=== PATIENT | female | born 1990 | race Two or more races ===

== ENCOUNTER 2016-06-19 04:10 | Emergency (ER) | payer OTHER, MEDICAID ==
[2016-06-19] MEDS ORDERED: LIDOCAINE-MPF 1% 5 ML VIAL ONE (05:25)
== END 2016-06-19 06:24 | disposition home or self-care (01) ==
DX: S61.211A Laceration without foreign body of left index finger without damage to nail, initial encounter (principal); W26.0XXA Contact with knife, initial encounter; Y92.89 Other specified places as the place of occurrence of the external cause; Y99.0 Civilian activity done for income or pay; F17.200 Nicotine dependence, unspecified, uncomplicated

== ENCOUNTER 2016-10-31 13:38 | Emergency (ER) | payer MEDICAID ==
--- NOTE | 2016-10-31 14:27 | ED Physician Documentation ---
PD HPI ABD PAIN - Stated complaint Stated Complaint: RT SIDE PX - Chief complaint Chief Complaint: Abd Pain - History obtained from History obtained from: Patient PD PAST MEDICAL HISTORY - Past Medical History Past Medical History: No Cardiovascular: Other Respiratory: None - Past Surgical History Past Surgical History: No - Present Medications Home Medications: Ambulatory Orders Medication Instructions Recorded Confirmed No Known Home Medications [No 06/19/16 06/19/16 Known Home Medications] - Allergies Allergies/Adverse Reactions: Allergies Allergy/AdvReac Type Severity Reaction Status Date / Time No Known Drug Allergies Allergy Verified 06/19/16 04:19 - Social History Does the pt smoke?: Yes Smoking Status: Current every day smoker Does the pt drink ETOH?: Yes Does the pt have substance abuse?: No - Immunizations Immunizations are current?: Yes - POLST Patient has POLST: No Results - Vitals Vitals: Vital Signs - 24 hr 10/31/16 13:51 Temperature 36.8 C Heart Rate 86 Respiratory 18 Rate Blood Pressure 132/96 H O2 Saturation 100 Oxygen O2 Source Room air
[2016-10-31] MEDS ORDERED: ACETAMINOPHEN 1,000 MG/100 ML 100 ML IV STA (14:32)
[2016-10-31] MEDS ORDERED: SODIUM CHLORIDE 0.9% 1,000 ML IV ONE ×2 (14:32→14:44)
[2016-10-31] MEDS ORDERED: ONDANSETRON 4 MG/2 ML VIAL IVP STA (14:32)
[2016-10-31] MEDS ORDERED: ACETAMINOPHEN 1,000 MG/100 ML 100 ML IV ONE (14:44)
[2016-10-31] MEDS ORDERED: ONDANSETRON 4 MG/2 ML VIAL ONE (14:44)
[2016-10-31 14:57] LABS: BILIRUBIN,URINE NEGATIVE (NEGATIVE)
[2016-10-31 15:04] LABS: UA w/ MICROSCOPIC CHARGE YES
[2016-10-31 15:06] LABS: HCG UR QUAL NEGATIVE
[2016-10-31 15:07] LABS: UR CULTURE IF IND INDICATED; WBC,URINE >25 /HPF (0-5)
[2016-10-31 15:08] LABS: BASOPHILS % (AUTO) 0.2 %; EOSINOPHILS % (AUTO) 0.1 %; HCT - HEMATOCRIT 40.3 % (37.0-47.0); HGB - HEMOGLOBIN 13.9 g/dL (12.0-16.0); LYMPHOCYTES % (AUTO) 4.8 %; MEAN CORPUSCULAR HEMOGLOBIN 34.3 pg (27.0-31.0); MEAN CORPUSCULAR HGB CONC 34.6 g/dL (32.0-36.0); MEAN CORPUSCULAR VOLUME 99.2 fL (81.0-99.0); MEAN PLATELET VOLUME 9.7 fL (7.9-10.8); MONOCYTES % (AUTO) 3.8 %; NEUTROPHILS % (AUTO) 91.1 %; RED BLOOD COUNT 4.06 10^6/uL (4.20-5.40); RED CELL DISTRIBUTION WIDTH 12.2 % (12.0-15.0); UNCORRECTED WHITE BLOOD COUNT 14.9 x10^3/uL; WHITE BLOOD COUNT 14.9 x10^3/uL (4.8-10.8)
[2016-10-31 15:14] LABS: ALBUMIN/GLOBULIN RATIO 1.3 (1.0-2.2); BILIRUBIN,TOTAL 1.7 mg/dL (0.2-1.0); CALCIUM 9.1 mg/dL (8.5-10.3); CREATININE 0.7 mg/dL (0.4-1.0); POTASSIUM 3.4 mmol/L (3.5-5.0); TOTAL PROTEIN 8.6 g/dL (6.7-8.2)
[2016-10-31 16:04] LABS: BAND NEUTROPHILS % (MANUAL) 0 %
[2016-10-31 16:06] LABS: LYMPHOCYTES % (MANUAL) 5 %; NEUTROPHILS % (MANUAL) 91 %; TOTAL CELLS COUNTED 100
[2016-10-31 16:07] LABS: NP AUTO DIFFERENTIAL? YES; NP MAN DIFFERENTIAL? NO; PLATELET ESTIMATE, MANUAL NORMAL (130-450,000) (NORMAL); PLATELET MORPHOLOGY NORMAL APPEARANCE (NORMAL)
[2016-10-31] MEDS ORDERED: KETOROLAC 60 MG/2 ML VIAL IVP STA (17:34)
--- NOTE | 2016-10-31 17:34 | ED Physician Documentation ---
History of Present Illness - Stated complaint Stated Complaint: RT SIDE PX - Chief complaint Chief Complaint: Abd Pain - Additonal information Additional information: hx from pt healthy 26 y/o f no prior surgeries denies preg to ER with right sided abd pain since yesterday uch worse today poor appetite NV no diarrhea no urinary sx Review of Systems Constitutional: denies: Fever Cardiac: denies: Chest pain / pressure Respiratory: denies: Dyspnea, Cough GI: reports: Abdominal Pain, Nausea, Vomiting. denies: Diarrhea : reports: LMP (10/09). denies: Now EGA Endocrine: denies: Easy bruising / bleeding Immunocompromised: denies: Immunocompromised PD PAST MEDICAL HISTORY - Past Medical History Past Medical History: No Cardiovascular: Other Respiratory: None - Past Surgical History Past Surgical History: No - Present Medications Home Medications: Ambulatory Orders Medication Instructions Recorded Confirmed Cephalexin [Keflex] 500 mg PO Q6H #40 capsule 10/31/16 HYDROcod/ACETAM 5/325 [Nichols 5/325] 1 ea PO Q6H PRN #10 tablet 10/31/16 Ibuprofen [Motrin] 400 mg PO Q6H PRN #30 tablet 10/31/16 Ondansetron Odt [Zofran] 4 mg TL Q6H PRN #10 tablet 10/31/16 - Allergies Allergies/Adverse Reactions: Allergies Allergy/AdvReac Type Severity Reaction Status Date / Time No Known Drug Allergies Allergy Verified 06/19/16 04:19 - Social History Does the pt smoke?: Yes Smoking Status: Current every day smoker Does the pt drink ETOH?: Yes Does the pt have substance abuse?: No - Immunizations Immunizations are current?: Yes - POLST Patient has POLST: No PD ED PE NORMAL - Vitals Vital signs reviewed: Yes - Cardiac Cardiac: RRR - Respiratory Respiratory: No respiratory distress, Clear bilaterally - Abdomen Abdomen: Soft, Other (sig TTP right abd RUQ > RLQ with + murphys, guarding) - Derm Derm: Normal color - Extremities Extremities: No deformity - Neuro Neuro: Alert and oriented X 3 Results - Vitals Vitals: Vital Signs - 24 hr 10/31/16 10/31/16 13:51 16:56 Temperature 36.8 C Heart Rate 86 94 Respiratory 18 18 Rate Blood Pressure 132/96 H 132/78 H O2 Saturation 100 98 Oxygen O2 Source Room air - Labs Labs: Laboratory Tests 10/31/16 10/31/16 10/31/16 14:05 14:05 14:40 WBC 14.9 H RBC 4.06 L Hgb 13.9 Hct 40.3 MCV 99.2 H MCH 34.3 H MCHC 34.6 RDW 12.2 Plt Count 157 MPV 9.7 Neut # Not Reportable Lymph # Not Reportable Costilla # Not Reportable Eos # Not Reportable Baso # Not Reportable Absolute Nucleated RBC Not Reportable Total Counted 100 Band Neuts % (Manual) 0 Neutrophils # (Manual) 13.6 H Lymphocytes # (Manual) 0.7 L Monocytes # (Manual) 0.6 Nucleated RBCs Not Reportable Differential Comment MANUAL DIFFERENTIAL Platelet Estimate NORMAL (130-450,000) Platelet Morphology NORMAL APPEARANCE RBC Morph Micro Appear NORMAL APPEARANCE Sodium Potassium Chloride Carbon Dioxide Anion Gap BUN Creatinine Estimated GFR (MDRD) Glucose Calcium Total Bilirubin AST ALT Alkaline Phosphatase Total Protein Albumin Globulin Albumin/Globulin Ratio Lipase Urine Color YELLOW Urine Clarity HAZY Urine pH 6.0 Ur Specific [place] 1.020 1.020 Urine Protein 30 H Urine Glucose (UA) NEGATIVE Urine Ketones NEGATIVE Urine Occult Blood SMALL H Urine Nitrite POSITIVE H Urine Bilirubin NEGATIVE Urine Urobilinogen 0.2 (NORMAL) Ur Leukocyte Esterase SMALL H Urine RBC 11-25 H Urine WBC >25 H Urine WBC Clumps PRESENT Ur Squamous Epith Cells FEW Squamous Urine Bacteria Many H Urine Mucus Few Strands Ur Microscopic Review INDICATED Urine Culture Comments INDICATED Urine HCG, Qual NEGATIVE 10/31/16 14:40 WBC RBC Hgb Hct MCV MCH MCHC RDW Plt Count MPV Neut # Lymph # Costilla # Eos # Baso # Absolute Nucleated RBC Total Counted Band Neuts % (Manual) Neutrophils # (Manual) Lymphocytes # (Manual) Monocytes # (Manual) Nucleated RBCs Differential Comment Platelet Estimate Platelet Morphology RBC Morph Micro Appear Sodium 134 L Potassium 3.4 L Chloride 101 Carbon Dioxide 22 Anion Gap 11.0 BUN 10 Creatinine 0.7 Estimated GFR (MDRD) 103 Glucose 82 Calcium 9.1 Total Bilirubin 1.7 H AST 20 ALT 19 Alkaline Phosphatase 61 Total Protein 8.6 H Albumin 4.8 Globulin 3.8 Albumin/Globulin Ratio 1.3 Lipase 16 L Urine Color Urine Clarity Urine pH Ur Specific [place] Urine Protein Urine Glucose (UA) Urine Ketones Urine Occult Blood Urine Nitrite Urine Bilirubin Urine Urobilinogen Ur Leukocyte Esterase Urine RBC Urine WBC Urine WBC Clumps Ur Squamous Epith Cells Urine Bacteria Urine Mucus Ur Microscopic Review Urine Culture Comments Urine HCG, Qual - Rads (name of study) sono Radiology: See rad report (nl GB, appendix not seen, no secondary signs of appy) CT abd pelvis c IV con Radiology: See rad report (c/w R pyelo, no appy, nl GB, IUD) PD MEDICAL DECISION MAKING - ED course ED course: sono neg for biliary dz no relief with ofirmev still very TTP right side abd also R CVA TTP but mostly abd TTP gave toradol and got CT CT neg for appy + for pyelo will tx with rocephin IV in ER and dc on keflex motrin vicodin zofran and 48 hr fup with me in ED since pt has no PMD Departure - Departure Disposition: Home, Self Care Clinical Impression: Pyelonephritis Condition: Good Instructions: ED Kidney Infec Female Prescriptions: Cephalexin [Keflex] 500 mg PO Q6H #40 capsule Ibuprofen [Motrin] 400 mg PO Q6H PRN #30 tablet PRN Reason: Pain HYDROcod/ACETAM 5/325 [Nichols 5/325] 1 ea PO Q6H PRN #10 tablet PRN Reason: Severe Pain Ondansetron Odt [Zofran] 4 mg TL Q6H PRN #10 tablet PRN Reason: Nausea / Vomiting Comments: Your appendix and your gallbladder were fine on imaging It looks like your pain is due to a kidney infection We gave you a dose of antibiotics through the IV in the ER When you get home, you need to rest and drink plenty of fluids, take motrin for mild pain and only use the hydrocodone for severe pain, and zofran for vomiting Take the antibiotic every 6 hours for 10 full days - you should eat yogurt or take a probiotic to prevent getting diarrhea from the antibiotic Return to see me for a recheck morning unless you are feeling completely better We will run a urine culture to determine what bacteria are causing the infection - if you need to have your antibiotics changed we will call you Also your blood pressure was high today and needs to be rechecked Forms: Activity restrictions
[2016-10-31] MEDS ORDERED: KETOROLAC 30 MG/ML VIAL ONE (17:39)
--- NOTE | 2016-10-31 18:23 | Ultrasound Report ---
COMPLETE ABDOMINAL ULTRASOUND: 10/31/2016 CLINICAL INDICATION: Right-sided pain. TECHNIQUE: Real-time scanning was performed with arborist representative static images obtained. FINDINGS: The liver measures 17.7 cm. Hepatic echogenicity is normal. No intrahepatic biliary dila tation or focal parenchymal lesion is seen. The gallbladder is contracted, but no cholelithiasis or pericholecystic fluid is seen. The common bile duct measures 4 mm. The visualized pancreas is luis l. The kidneys are unremarkable, with the right measuring 13.5 cm, and the left measuring 11.5 cm. The spleen measures 14.6 cm, and demonstrates normal echotexture. A splenule is noted adjacent to th e spleen. Scanning of the right lower quadrant does not demonstrate the appendix. A large amount of bowel gas is noted. IMPRESSION: 1. NO EVIDENCE OF CHOLELITHIASIS OR BILIARY OBSTRUCTION. 2. NONVISUALIZATION OF THE APPENDIX, BUT NO SECONDARY FINDINGS OF ACUTE APPENDICITIS. JOB #: [id number] EXT JOB #:
[2016-10-31] MEDS ORDERED: IOPAMIDOL-300 100 ML VIAL IVP ONE (18:40)
--- NOTE | 2016-10-31 19:08 | CT Preliminary Report ---
Exam: CT Abdomen/Pelvis W/ IMPRESSION: 1. CT findings consistent with right pyelonephritis. There is no evidence of renal abscess or hydrone phrosis. 2. No evidence of appendicitis or bowel obstruction. 3. The gallbladder is within normal limits. 4. Intrauterine device is in place. [facility] SITE ID: [id number]
--- NOTE | 2016-10-31 19:10 | CT Report ---
EXAM: CT ABDOMEN AND PELVIS EXAM DATE: 10/31/2016 06:42 PM. CLINICAL HISTORY: Abdominal pain COMPARISONS: None. TECHNIQUE: Routine helical CT imaging was performed through the abdomen and pelvis. IV contrast: Yes. Enteric contrast: No. Reconstructions: Coronal and sagittal. In accordance with CT protocol optimization, one or more of the following dose reduction techniques w ere utilized for this exam: automated exposure control, adjustment of mA and/or KV based on patient s ize, or use of iterative reconstructive technique. FINDINGS: Lung Bases: Unremarkable. Liver: Normal. No masses. Gallbladder/Bile Ducts: Unremarkable. Spleen: There is splenomegaly. Pancreas: Normal. Adrenal Glands: Normal. Kidneys: There is ill-defined cortical hypodensity within the right kidney. There is mild right perin ephric stranding. No evidence of renal abscess. There is right urothelial enhancement. No stones or h ydronephrosis. Peritoneal Cavity/Bowel: No dilated or thick-walled bowel is seen. A small amount of free fluid withi n the right pelvis. No intraperitoneal free air. No enlarged mesenteric or retroperitoneal lymph node s. The appendix is well visualized and normal. Pelvic Organs: Intrauterine device is in place. Urinary bladder demonstrates no significant abnormali ties. Vasculature: No aneurysms or other significant abnormality. Bones: No significant abnormality. Other: None. IMPRESSION: 1. CT findings consistent with right pyelonephritis. There is no evidence of renal abscess or hydrone phrosis. 2. No evidence of appendicitis or bowel obstruction. 3. The gallbladder is within normal limits. 4. Intrauterine device is in place. [facility] Referring Provider Line: [phone] SITE ID: [id number]
[2016-10-31] MEDS ORDERED: cefTRIAXone 1 GM in SODIUM CHLORIDE 0.9% MINIBAG 100 ML IV STA (19:19)
[2016-10-31] MEDS ORDERED: cefTRIAXone 1 GM VIAL ONE (19:28)
[2016-10-31 20:23] VITALS: BP 121/78
== END 2016-10-31 20:20 | disposition home or self-care (01) ==
LOC: ED 13:38
DX: N12 Tubulo-interstitial nephritis, not specified as acute or chronic (principal); R03.0 Elevated blood-pressure reading, without diagnosis of hypertension; F17.200 Nicotine dependence, unspecified, uncomplicated
CPT/HCPCS: 36415; 74177; 76700; 80053; 81001; 81025; 83690; 85025; 87086; 96361; 96365; 96375; 99284; J0131; Q9967; 81003

== ENCOUNTER 2016-12-01 13:35 | Outpatient (CLI) | payer MEDICAID | END 2016-12-01 13:36 | disposition critical access hospital (66) | LOC: EMS 13:35 | PROVIDERS: ATTEND Surgery | DX: R45.851 Suicidal ideations (principal) | CPT/HCPCS: A0425; A0429 ==

== ENCOUNTER 2016-12-01 13:50 | Emergency (ER) | payer MEDICAID ==
--- NOTE | 2016-12-01 14:24 | ED Physician Documentation ---
PD HPI MHE - Stated complaint Stated Complaint: SI - Chief complaint Chief Complaint: MHE - History obtained from History obtained from: Patient - History of Present Illness Primary symptom: Other (She has long-standing depression which is never really been treated, most of the issues related around her mother, but also release in long-term relationship and move up from [place] after that collapsed. She feels fairly hopeless, unable to keep down a job. She has some vague suicidal ideation without specific plan. She also has been drinking alcohol.) Review of Systems Ten Systems: 10 systems reviewed and negative Constitutional: denies: Fever, Chills Nose: denies: Rhinorrhea / runny nose, Congestion Throat: denies: Dental pain / toothache, Sore throat Cardiac: denies: Chest pain / pressure, Palpitations Respiratory: denies: Dyspnea, Cough PD PAST MEDICAL HISTORY - Past Medical History Past Medical History: Yes Cardiovascular: Other Respiratory: None - Past Surgical History Past Surgical History: No - Present Medications Home Medications: Ambulatory Orders Medication Instructions Recorded Confirmed Cephalexin [Keflex] 500 mg PO Q6H #40 capsule 10/31/16 HYDROcod/ACETAM 5/325 [[place] 5/325] 1 ea PO Q6H PRN #10 tablet 10/31/16 Ibuprofen [Motrin] 400 mg PO Q6H PRN #30 tablet 10/31/16 Ondansetron Odt [Zofran] 4 mg TL Q6H PRN #10 tablet 10/31/16 - Allergies Allergies/Adverse Reactions: Allergies Allergy/AdvReac Type Severity Reaction Status Date / Time No Known Drug Allergies Allergy Verified 06/19/16 04:19 - Social History Does the pt smoke?: Yes Smoking Status: Current every day smoker Does the pt drink ETOH?: Yes Does the pt have substance abuse?: No - Family History Family history: reports: Non contributory - Immunizations Immunizations are current?: Yes - POLST Patient has POLST: No PD ED PE NORMAL - Vitals Vital signs reviewed: Yes - General General: Alert and oriented X 3, No acute distress, Other (Sometimes tearful but appropriate and cogent, good historian) - HEENT HEENT: PERRL, EOMI - Neck Neck: Supple, no meningeal sign, No bony TTP - Cardiac Cardiac: RRR, No murmur - Respiratory Respiratory: No respiratory distress, Clear bilaterally - Abdomen Abdomen: Soft, Non tender - Back Back: No CVA TTP, No spinal TTP - Derm Derm: Normal color, Warm and dry - Extremities Extremities: No edema, No calf tenderness / cord - Neuro Neuro: Alert and oriented X 3, Normal speech - Psych Psych: Normal mood, Normal affect Results - Vitals Vitals: Vital Signs - 24 hr 12/01/16 13:50 Temperature 36.9 C Heart Rate 85 Respiratory 16 Rate Blood Pressure 136/86 H O2 Saturation 97 Oxygen O2 Source Room air - Labs Labs: Laboratory Tests 12/01/16 12/01/16 12/01/16 13:50 14:27 14:27 WBC 6.1 RBC 4.26 Hgb 14.3 Hct 41.4 MCV 97.2 MCH 33.6 H MCHC 34.6 RDW 12.5 Plt Count 184 MPV 9.0 Neut # 3.4 Lymph # 2.2 Mchenry # 0.3 Eos # 0.1 Baso # 0.1 Absolute Nucleated RBC 0.00 Nucleated RBCs 0.0 Sodium 142 Potassium 3.7 Chloride 108 Carbon Dioxide 24 Anion Gap 10.0 BUN 10 Creatinine 0.6 Estimated GFR (MDRD) 123 Glucose 94 Calcium 9.2 Total Bilirubin 0.9 AST 19 ALT 16 Alkaline Phosphatase 68 Total Protein 8.1 Albumin 4.6 Globulin 3.5 Albumin/Globulin Ratio 1.3 Lipase 25 Urine Color YELLOW Urine Clarity CLEAR Urine pH 6.0 Ur Specific [place] <=1.005 Urine Protein NEGATIVE Urine Glucose (UA) NEGATIVE Urine Ketones NEGATIVE Urine Occult Blood NEGATIVE Urine Nitrite NEGATIVE Urine Bilirubin NEGATIVE Urine Urobilinogen 0.2 (NORMAL) Ur Leukocyte Esterase NEGATIVE Ur Microscopic Review NOT INDICATED Urine Culture Comments NOT INDICATED Urine HCG, Qual NEGATIVE Ethyl Alcohol 238.6 PD MEDICAL DECISION MAKING - ED course ED course: 26-year-old woman with long-standing depression, vague thoughts of self-harm without specific plan. She is noted to be somewhat intoxicated although does not appear clinically so. Seen by the social services director and resources given for outpatient treatment. Departure - Departure Disposition: 01 Home, Self Care Clinical Impression: Depression Qualifiers: Depression Type: major depressive disorder Major depression recurrence: recurrent Active/Remission status: currently active Major depression episode severity: severe Psychotic features: without psychotic features Qualified Code(s ): F33.2 - Major depressive disorder, recurrent severe without psychotic features Alcoholic intoxication Qualifiers: Complication of substance-induced condition: uncomplicated Qualified Code(s): F10.120 - Alcohol abuse with intoxication, uncomplicated Condition: Stable Record reviewed to determine appropriate education?: Yes Instructions: ED Alcohol Intoxication, ED Depression Comments: Follow the instructions of the social services director regarding outpatient treatment. Return anytime if worse. Try to decrease your use of alcohol, remember that it does contribute to depression. Your blood pressure was elevated today on check into the emergency department. This does not mean that you have hypertension, it is a common phenomenon to come to the emergency department and have elevated blood pressure. I recommend that she see her primary care physician within the week to have it rechecked when you are feeling better.
[2016-12-01 14:35] LABS: BASOPHILS # (AUTO) 0.1 10^3/uL (0.0-0.1); BASOPHILS % (AUTO) 0.9 %; EOSINOPHILS # (AUTO) 0.1 10^3/uL (0.0-0.7); EOSINOPHILS % (AUTO) 1.4 %; HCT - HEMATOCRIT 41.4 % (37.0-47.0); HGB - HEMOGLOBIN 14.3 g/dL (12.0-16.0); LYMPHOCYTES # (AUTO) 2.2 10^3/uL (1.5-3.5); LYMPHOCYTES % (AUTO) 36.1 %; MEAN CORPUSCULAR HEMOGLOBIN 33.6 pg (27.0-31.0); MEAN CORPUSCULAR HGB CONC 34.6 g/dL (32.0-36.0); MEAN CORPUSCULAR VOLUME 97.2 fL (81.0-99.0); MONOCYTES # (AUTO) 0.3 10^3/uL (0.0-1.0); MONOCYTES % (AUTO) 5.6 %; NEUTROPHILS # (AUTO) 3.4 10^3/uL (1.5-6.6); RED BLOOD COUNT 4.26 10^6/uL (4.20-5.40); RED CELL DISTRIBUTION WIDTH 12.5 % (12.0-15.0); UNCORRECTED WHITE BLOOD COUNT 6.1 x10^3/uL; WHITE BLOOD COUNT 6.1 x10^3/uL (4.8-10.8)
[2016-12-01 14:42] LABS: BILIRUBIN,URINE NEGATIVE (NEGATIVE)
[2016-12-01 14:45] LABS: HCG UR QUAL NEGATIVE; UA CHARGE (STRIP ONLY) YES; UR CULTURE IF IND NOT INDICATED
[2016-12-01 14:46] LABS: ALBUMIN/GLOBULIN RATIO 1.3 (1.0-2.2); BILIRUBIN,TOTAL 0.9 mg/dL (0.2-1.0); CALCIUM 9.2 mg/dL (8.5-10.3); CREATININE 0.6 mg/dL (0.4-1.0); POTASSIUM 3.7 mmol/L (3.5-5.0); TOTAL PROTEIN 8.1 g/dL (6.7-8.2)
[2016-12-01 18:10] VITALS: BP 145/89
== END 2016-12-01 17:50 | disposition home or self-care (01) ==
LOC: EDBD → EDUNIT# → ED 13:50
DX: F33.2 Major depressive disorder, recurrent severe without psychotic features (principal); F10.120 Alcohol abuse with intoxication, uncomplicated; R03.0 Elevated blood-pressure reading, without diagnosis of hypertension; F17.200 Nicotine dependence, unspecified, uncomplicated; Y90.9 Presence of alcohol in blood, level not specified
CPT/HCPCS: 36415; 80053; 80320; 81001; 81003; 81025; 83690; 85025; 87086; 99283

== ENCOUNTER 2019-01-15 18:26 | Outpatient (CLI) | payer MEDICAID ==
[2019-01-15 18:43] VITALS: BP 120/86
[2019-01-15 19:13] LABS: BILIRUBIN,URINE NEGATIVE (NEGATIVE); GLUCOSE, URINE (UA) NEGATIVE (NEGATIVE); KETONES,URINE (UA) NEGATIVE (NEGATIVE); LEUKOCYTE ESTERASE, URINE NEGATIVE (NEGATIVE); NITRITE,URINE NEGATIVE (NEGATIVE); OCCULT BLOOD,URINE NEGATIVE (NEGATIVE); PROTEIN,URINE NEGATIVE (NEGATIVE); UROBILINOGEN,URINE 0.2 (NORMAL) E.U./dL (NORMAL)
[2019-01-15 19:15] LABS: CLARITY,URINE CLEAR (CLEAR)
--- NOTE | 2019-01-15 22:02 | Ultrasound Report ---
Reason: left sided abd pain Procedure Date: 01/15/2019 Accession Number: [id number] / [id number] Procedure: US - OB Limited CPT Code: FULL RESULT: EXAM: LIMITED OBSTETRICAL ULTRASOUND EXAM DATE: 01/15/2019 07:20 PM. CLINICAL HISTORY: Left-sided abdominal pain, 22 weeks . COMPARISON: ABDOMEN/PELVIS W/ 10/31/2016 6:39 PM. TECHNIQUE: Real-time sonographic evaluation of the fetus performed by the retarder operator. Multiple associate financial representative static images were saved for review. FINDINGS: Established due date: 05/21/2019. Em . Cardiac activity: 143 bpm. movement: Visualized. Presentation: Breech. Placenta: Posterior position. Amniotic fluid: Normal. FLORENCE 14.3 cm. MVP 4.0 cm. Other: Normal sonographic appearance of the ovaries bilaterally. The right ovary measured 3.7 x 1.6 x 1.9 cm and the left ovary measures 2.4 x 1.2 x 1.6 cm. Within the left adnexa, adjacent to the left ovary, is a hypoechoic somewhat tubular appearing abnormality artifact related to bowel versus hydrosalpinx. No internal complexity or vascularity seen on this exam. There is no pathologic free fluid within the lower abdomen or pelvis. Normal blood flow to the ovaries bilaterally. Cervix is long and closed measuring 4.2 cm. IMPRESSION: 1. Single live intrauterine gestation is noted. heart rate was at 143 bpm. Normal amniotic fluid. Cervix is closed measuring 4.2 cm. 2. Normal appearance of the ovaries bilaterally. No evidence of torsion. No significant pelvic free fluid. RADIA
[2019-01-15 22:21] LABS: TRICHOMONAS VAGINALIS DNA NEGATIVE (NEGATIVE)
[2019-01-15 22:57] LABS: CANDIDA GROUP DNA NEGATIVE (NEGATIVE); CANDIDA KRUSEI DNA NEGATIVE (NEGATIVE); TRICHOMONAS VAGINALIS DNA NEGATIVE (NEGATIVE)
--- NOTE | 2019-01-27 21:44 | PROVIDER PROGRESS NOTE ---
- HPI Chief Complaint: Other (Patient is a 24 yo at 22 wga (by patient report) who presents with LLQ starting at about noon today. No VB or LOF. No contractions. Endorses FM. Recently moved to [facility] from [place]. Has not had care since 14 wga. Needs to establish care. No fallsor abdominal trauma. No NV.) Current : Current EDU 05/21/19 Gestation 22 Weeks and 0 Days 1 Para 0 Vital Signs Temperature 98.1 F 01/15/19 18:40 Heart Rate 81 01/15/19 18:40 Respiratory Rate 16 01/15/19 18:40 Blood Pressure 120/86 H 01/15/19 18:40 O2 Saturation 98 01/15/19 18:40 Temperature 98.1 F 01/15/19 18:40 Heart Rate 81 01/15/19 18:40 Respiratory Rate 16 01/15/19 18:40 Blood Pressure 120/86 H 01/15/19 18:40 O2 Saturation 98 01/15/19 18:40 - Exam GEN: NAD to mild distress HEENT: NCAT CV: RRR RESP: CTAB ABD: S&NT/ND. Mild TTP at LLQ. FH at 2 cm above umbilicua, measures 22 cm SVE: Closed/long/high FFN neg - Procedures OB Procedure Performed: Other (US to assess TVCL and ovaries. WNL see DI report) Service Date of procedure: 01/15/19 Procedure Details: 28 yo at 22 wga with LLQ pain FFN neg OB US shows TVCL wnl and ovaries without evidence of torsion activity seen on us. Dopplers 150 GCCt neg + BV--> rx for metronidazoel called into pharmacy after discharge Warning signs reviewed Discharged to home Counseled to establish OB care DOS: 01/15/19 DX: Abdominal pain in Bacterial vaginosis
== END 2019-01-15 21:57 | disposition home or self-care (01) ==
LOC: WFO 18:26 → FBP 18:29 → WFO 21:57
PROVIDERS: ATTEND Obstetrics & Gynecology
DX: O99.89 Other specified diseases and conditions complicating pregnancy, childbirth and the puerperium (principal); O23.592 Infection of other part of genital tract in pregnancy, second trimester; B96.89 Other specified bacterial agents as the cause of diseases classified elsewhere; Z3A.22 22 weeks gestation of pregnancy
CPT/HCPCS: 76815; 81001; 81003; 82731; 87081; 87086; 87491; 87591; 87661; 87801; 99212

== ENCOUNTER 2019-01-21 08:00 | Outpatient (CLI) | payer MEDICAID ==
[2019-01-21 18:56] LABS: MUDS CUTOFF CONCENTRATIONS CUTOFF CONC BELOW:
[2019-01-21 19:44] LABS: BILIRUBIN,URINE NEGATIVE (NEGATIVE); GLUCOSE, URINE (UA) NEGATIVE (NEGATIVE); KETONES,URINE (UA) NEGATIVE (NEGATIVE); LEUKOCYTE ESTERASE, URINE NEGATIVE (NEGATIVE); NITRITE,URINE NEGATIVE (NEGATIVE); OCCULT BLOOD,URINE NEGATIVE (NEGATIVE); PH,URINE 7.5 PH (5.0-7.5); PROTEIN,URINE NEGATIVE (NEGATIVE); UROBILINOGEN,URINE 0.2 (NORMAL) E.U./dL (NORMAL)
[2019-01-21 19:50] LABS: CLARITY,URINE CLEAR (CLEAR)
[2019-01-21 19:58] LABS: AMPHETAMINE SCREEN,URINE NEGATIVE (NEGATIVE); BENZODIAZEPINES SCREEN, URINE NEGATIVE (NEGATIVE); COCAINE SCREEN URINE NEGATIVE (NEGATIVE); METHADONE SCREEN, URINE NEGATIVE (NEGATIVE); METHAMPHETAMINES SCREEN, URINE NEGATIVE (NEGATIVE); OPIATE SCREEN, URINE NEGATIVE (NEGATIVE); OXYCODONE SCREEN, URINE NEGATIVE (NEGATIVE); PROPOXYPHENE SCREEN, URINE NEGATIVE (NEGATIVE); TRICYCLIC ANTIDEPRESSANT,URINE NEGATIVE (NEGATIVE)
[2019-01-21 20:10] LABS: RBC,URINE None Seen /HPF (0-5)
[2019-01-21 20:11] LABS: AMORPHOUS SEDIMENT,UR Rare /LPF; BACTERIA,URINE None Seen /HPF (None Seen); SQUAMOUS EPITHELIAL CELL,UR FEW Squamous (<= Few)
== END 2019-01-21 08:01 | disposition home or self-care (01) ==
LOC: LAB.R 08:00
PROVIDERS: ATTEND Obstetrics & Gynecology
DX: Z34.00 Encounter for supervision of normal first pregnancy, unspecified trimester (principal)
CPT/HCPCS: 80306; 81001; 87086

== ENCOUNTER 2019-01-30 13:06 | Outpatient (CLI) | payer MEDICAID ==
--- NOTE | 2019-01-30 18:09 | Ultrasound Report ---
Reason: SUPER OF NORMAL Procedure Date: 01/30/2019 Accession Number: [id number] / [id number] Procedure: US - OB Detailed Eval CPT Code: FULL RESULT: EXAM: COMPLETE OBSTETRICAL ULTRASOUND EXAM DATE: 01/30/2019 02:30 PM. CLINICAL HISTORY: anatomic survey. COMPARISON: OB LIMITED 01/15/2019 7:28 PM. TECHNIQUE: Real-time sonographic evaluation of the fetus performed by the critical care unit nurse. Multiple retail service representative static images were saved for review. Additional transvaginal imaging to more accurately evaluate cervical length/placental position/etc. DATING: Established EGA 24 weeks 1 day with GEORGE 05/21/2019 based on provider statement. EGA 23 weeks 5 days with GEORGE 05/24/2019 based on the current ultrasound. GENERAL EVALUATION Em . Cardiac activity: 139 bpm. movement: Present Presentation: Breech Placenta: Posterior position. Low lying, inferior edge 1.9 cm from the internal cervical loss. Umbilical cord: 3 vessel cord. Central placental cord origin. Amniotic fluid: Subjectively normal. MVP 2.8 cm. BIOMETRY Bi-Parietal Diameter (BPD): 5.8 cm, 23 weeks 6 days Head Circumference (HC): 21.5 cm, 23 weeks 4 days Abdominal Circumference (AC): 19.3 cm, 24 weeks 0 days Femur Length (FL): 4.1 cm, 23 weeks 2 days Estimated Weight: 618 g, 22nd percentile for 24 weeks 1 day. ANATOMY The intracranial structures, profile, face/nose/lips, spine, 4 chamber heart and outflow tracts, stomach, abdominal wall and cord insertion, diaphragm, kidneys, bladder, and extremities were visualized and demonstrate no abnormality. MATERNAL STRUCTURES Uterus: Unremarkable. Cervix: Long and closed. Transabdominal length 4.3 cm. Right ovary/adnexa: Unremarkable. Left ovary/adnexa: Unremarkable. Free fluid: None. IMPRESSION: 1. Em intrauterine with gestational age 24 weeks 1 day based on provider statement. 2. Estimated weight is within expected limits for assigned dating. 3. Normal anatomic survey. No anatomic abnormalities are detected at this time. RADIA
== END 2019-01-30 13:07 | disposition home or self-care (01) ==
LOC: DI 13:06
PROVIDERS: ATTEND Obstetrics & Gynecology
DX: Z34.00 Encounter for supervision of normal first pregnancy, unspecified trimester (principal)
CPT/HCPCS: 76811

== ENCOUNTER 2019-02-18 10:30 | Outpatient (CLI) | payer MEDICAID ==
[2019-02-18 11:57] LABS: BASOPHILS # (AUTO) 0.1 10^3/uL (0.0-0.1); BASOPHILS % (AUTO) 0.5 %; EOSINOPHILS % (AUTO) 0.4 %; HGB - HEMOGLOBIN 10.7 g/dL (12.0-16.0); LYMPHOCYTES # (AUTO) 1.4 10^3/uL (1.5-3.5); LYMPHOCYTES % (AUTO) 14.8 %; MEAN CORPUSCULAR HEMOGLOBIN 33.2 pg (27.0-31.0); MEAN CORPUSCULAR HGB CONC 32.9 g/dL (32.0-36.0); MEAN CORPUSCULAR VOLUME 100.9 fL (81.0-99.0); MEAN PLATELET VOLUME 11.9 fL (7.9-10.8); MONOCYTES # (AUTO) 0.5 10^3/uL (0.0-1.0); NEUTROPHILS # (AUTO) 7.5 10^3/uL (1.5-6.6); NEUTROPHILS % (AUTO) 78.5 %; PLT - PLATELET COUNT 171 10^3/uL (130-450); RED BLOOD COUNT 3.22 10^6/uL (4.20-5.40); WHITE BLOOD COUNT 9.6 x10^3/uL (4.8-10.8)
[2019-02-19 13:00] LABS: HEPATITIS B SURFACE ANTIGEN NON-REACTIVE (NON-REACTIVE); HEPATITIS C ANTIBODY NON-REACTIVE (NON-REACTIVE)
[2019-02-19 13:33] LABS: HIV AG/AB 4TH GEN NON-REACTIVE (NON-REACTIVE)
== END 2019-02-18 10:31 | disposition home or self-care (01) ==
LOC: LAB 10:30
PROVIDERS: ATTEND Obstetrics & Gynecology
DX: Z34.00 Encounter for supervision of normal first pregnancy, unspecified trimester (principal)
CPT/HCPCS: 36415; 81599; 82950; 85025; 85027; 86592; 86762; 86803; 86850; 86900; 86901; 87340; 87389

== ENCOUNTER 2019-03-25 08:09 | Outpatient (CLI) | payer MEDICAID ==
--- NOTE | 2019-03-26 09:44 | Ultrasound Report ---
Reason: LOW LYING PLACENTA Procedure Date: 03/25/2019 Accession Number: [id number] / [id number] Procedure: US - OB F/U or Repeat CPT Code: Final Report FULL RESULT: EXAM: FOLLOW-UP OBSTETRICAL ULTRASOUND EXAM DATE: 03/25/2019 08:51 AM. CLINICAL HISTORY: LOW LYING PLACENTA. COMPARISON: 01/30/2019 OB DETAILED EVAL 01/30/2019 1:06 PM. TECHNIQUE: Real-time sonographic evaluation of the fetus performed by the commercial lines account executive. Additional transvaginal imaging to more accurately evaluate cervical length/placental position/etc. Multiple account maintenance representative static images were saved for review. DATING: Established EGA 31 weeks and 3 days with GEORGE 05/24/2019 based on LMP. EGA 31 weeks and 6 days with GEORGE 05/21/2019 based on physician stated. GENERAL EVALUATION Em . Cardiac activity: 143 bpm. movement: Visualized. Presentation: Cephalic. Placenta: Posterior position. Amniotic fluid: Normal. [place]OR[place] 16.6 cm. MVP 5.6 cm. BIOMETRY Not performed due to indication for study. ANATOMY Not performed due to indication for study. MATERNAL STRUCTURES Cervical length measures 4.7 cm. IMPRESSION: 1. Em live intrauterine with gestational age 31 weeks and 6 days based on physician's statement. 2. 1.7 cm cervical length. 3. Unable to see the relationship of the placenta to the cervix due to position of baby and posterior placenta with a partially filled bladder. RADIA
== END 2019-03-25 08:10 | disposition home or self-care (01) ==
LOC: DI 08:09
PROVIDERS: ATTEND Obstetrics & Gynecology
DX: O44.03 Complete placenta previa NOS or without hemorrhage, third trimester (principal); Z3A.31 31 weeks gestation of pregnancy
CPT/HCPCS: 76816

== ENCOUNTER 2019-04-10 15:00 | Outpatient (CLI) | payer MEDICAID ==
--- NOTE | 2019-04-11 09:15 | Ultrasound Report ---
Reason: LOW LYING PLACENTA, SUPERVISION NORMAL FIRST PREG Procedure Date: 04/10/2019 Accession Number: [id number] / [id number] Procedure: US - OB F/U or Repeat CPT Code: Final Report FULL RESULT: EXAM: FOLLOW-UP OBSTETRICAL ULTRASOUND EXAM DATE: 04/10/2019 03:50 PM. CLINICAL HISTORY: LOW LYING PLACENTA, SUPERVISION NORMAL FIRST PREG. COMPARISON: OB F/U OR REPEAT 03/25/2019 8:51 AM. TECHNIQUE: Real-time sonographic evaluation of the fetus performed by the aba therapist. Additional transvaginal imaging to more accurately evaluate cervical length/placental position/etc. Multiple customer account representative static images were saved for review. DATING: Established EGA 34 weeks 1 day with GEORGE 05/21/2019 based on physician stated dating. EGA 34 weeks 5 days with GEORGE 05/24/2019 based on prior ultrasound dated 01/30/2019. GENERAL EVALUATION Em . Cardiac activity: 145 bpm. movement: Visualized. Presentation: Cephalic. Placenta: Posterior position. The placental margin is 3.2 cm from the internal os. Amniotic fluid: Normal. FLORENCE 10.3 cm. MVP 3.4 cm. ANATOMY Not evaluated on this exam. MATERNAL STRUCTURES The cervix is long and closed. Cervical length measures 4.6 cm on transvaginal images. IMPRESSION: 1. Em live intrauterine with gestational age 34 weeks 1 day based on stated dating. 2. Posterior placenta. The placental margin is 3.2 cm from the internal os. No previa identified. Cervical length measures 4.6 cm. RADIA
== END 2019-04-10 15:01 | disposition home or self-care (01) ==
LOC: DI 15:00
PROVIDERS: ATTEND Obstetrics & Gynecology
DX: Z34.03 Encounter for supervision of normal first pregnancy, third trimester (principal)
CPT/HCPCS: 76816

== ENCOUNTER 2019-04-29 08:00 | Outpatient (CLI) | payer MEDICAID ==
[2019-04-29 20:15] LABS: TRICHOMONAS VAGINALIS DNA NEGATIVE (NEGATIVE)
== END 2019-04-29 23:59 | disposition home or self-care (01) ==
LOC: LAB.R 08:00
PROVIDERS: ATTEND Nurse Practitioner Obstetrics & Gynecology
DX: Z36.85 Encounter for antenatal screening for Streptococcus B (principal)
CPT/HCPCS: 87491; 87591; 87661; 87797

== ENCOUNTER 2019-04-29 09:30 | Outpatient (CLI) | payer MEDICAID | END 2019-04-29 09:31 | disposition home or self-care (01) | LOC: LAB 09:30 | PROVIDERS: ATTEND Nurse Practitioner Obstetrics & Gynecology | DX: O36.0990 Maternal care for other rhesus isoimmunization, unspecified trimester, not applicable or unspecified (principal); Z36.85 Encounter for antenatal screening for Streptococcus B; Z3A.00 Weeks of gestation of pregnancy not specified | CPT/HCPCS: 36415; 86850; 87491; 87591; 87661; 87797 ==

== ENCOUNTER 2019-05-19 13:54 | Inpatient (IN) | payer MEDICAID ==
[2019-05-19] MEDS ORDERED: SODIUM CHLORIDE FLUSH 0.9% 10 ML SYRINGE IVP PRN (16:14)
[2019-05-19] MEDS ORDERED: ONDANSETRON 4 MG/2 ML VIAL IVP PRN ×2 (16:14→19:27)
--- NOTE | 2019-05-19 16:23 | HISTORY & PHYSICAL EXAMINATION ---
Admit History - Visit Reason Visit Reason: Contractions - : 1 Parity: 0 Premature: 0 Ectopic: 0 : 0 Care: positive: [facility] Risk/History: positive: None Complications This : positive: None Smoking Status: Former smoker - Mother's Labs Mother's Blood Type: positive: A Mother's RH: positive: Negative GBS: positive: Group B Step Negative Rubella Status: positive: Immune Meds/Allgy - Home Medications Home Medications: Ambulatory Orders Medication Instructions Recorded Confirmed Cephalexin [Keflex] 500 mg PO Q6H #40 capsule 10/31/16 HYDROcod/ACETAM 5/325 [[place] 5/325] 1 ea PO Q6H PRN #10 tablet 10/31/16 Ibuprofen [Motrin] 400 mg PO Q6H PRN #30 tablet 10/31/16 Ondansetron Odt [Zofran] 4 mg TL Q6H PRN #10 tablet 10/31/16 - Allergies Allergies/Adverse Reactions: Allergies Allergy/AdvReac Type Severity Reaction Status Date / Time No Known Drug Allergies Allergy Verified 06/19/16 04:19 Review of Systems - Constitutional Constitutional: denies: Fatigue, Fever, Chills, Malaise - Eyes Eyes: denies: Blurred vision, Spots in vision, Dipolpia - Cardiovascular Cariovascular: denies: Chest pain, Edema - Respiratory Respiratory: denies: SOB at rest - Gastrointestinal Gastrointestinal: denies: Constipation, Diarrhea, Change in bowel habits - Integumentary Integumentary: denies: Rash, Pruritis - Neurological Neurological: denies: Headache Physical - Abdominal Exam Vital Signs: Temp Pulse Resp BP Pulse Ox 37.0 C 91 20 132/86 H 100 05/19/19 14:18 05/19/19 14:18 05/19/19 14:18 05/19/19 14:18 05/19/19 14:18 Contraction Frequency (min/apart): 5-7 Contraction Intensity: positive: Moderate Uterine Resting Tone: positive: Soft - Monitoring Heart Rate Baseline: 130 Strip Review: positive: Category I - Presentation Presentation: positive: Vertex - Vaginal Exam Membranes: positive: Membranes intact Dilation (in cm): 2 Effacement (%): 75 Station: positive: 1 Cervical Position: positive: Posterior - Speculum Exam Speculum Exam Performed: positive: No Plan for Labor - Plan For Labor I expect patient to be DC'd or transferred within 96 hours.: Yes Plan for Labor: HPI: This 29ypo @ 39.5wks gestation presented to [facility] on 05/19/2019 at approximately 1400 with c/o contractions that have increased in intensity and frequency since early this morning. She denies vaginal bleeding or leakage of fluid and reports +FM. SVE 75/+1, vertex, posterior. She has been a patient of [facility] at 25wks gestation. Due to her late transfer of care and her move from [place] she received inconsistent care throughout her first trimester and much of her 2nd trimester. She is dated by an early ultrasound per her reports which she states is consistent with her LMP dating however multiple efforts have been made to obtain these records without success. Her FAS at 23.5wks was consistent with stated dating. Otherwise her has remained uncomplicated. She is scheduled for elective IOL tomorrow (05/20/2019). Patient was placed in observation status and she desires early placement of epidural with augmentation of labor upon arrival of FOB in 5 hours. Dating criteria: Stated GEORGE by patient 05/21/2019 - no initial ultrasound available for review Serial exams agree with GEORGE OB Hx: G1: Current Medications: Allergies: PMHx: Recurrent UTIs Surgical Hx: none Social Hx: Former smoker, no ETOH of IVDA. Family Hx: No signficant labs: A neg/Rubella immune Gentic testing: unclear if completed- records pending Glucola 135 GBS & GC/CT NEG x 3 Ultrasounds: FAS: 01/30/2019 @ 24.1wks by ultrasound (23.5wks by pt provided GEORGE). Posterior placenta, no previa. Low-lying placenta 1.9cm from internal cervical os. 3VC. [place]ORENCE subjectively normal. Anatomy WNL. 03/25/2019 F/u low-lying placenta unable to be assessed due to position and partially filled bladder. growth not measured. 04/10/2019 f/u low-lying placenta reveals resolution of previously low-lying placenta measuring 3.2cm from internal cervical os. EGA 34.1 by assigned dating and 34.5 by previous ultrasound. growth not measured. Immunizations: TDAP 02/18/2019 Influenza 05/02/2019 Rhogam following repeat antibody screen (negative) - 05/02/2019 Physical Exam: Normocephalic, atraumatic Heart RRR w/o M/G/R Lungs CTAB Abdomen gravid, soft, nontender FHR baseline 140s, moderate variability, + accels, no decels Contractions palpate moderate every 4-6 minutes with soft resting tone SVE 2/75/+1, vertex, posterior, medium consistency. Membranes intact Bilateral LE's no edema Assessment: 29yo @ 39.5wks gestation Early labor GBS neg Plan: Place in observation status until pt desires epidural for pain management, active labor or SROM Intermittent heart rate auscultation Jacuzzi PRN Epidural per patient request. Will initiate pitocin for augmentation with no cervical change in 4 hours Reviewed plan of care with pt and labor RN at the bedside who are all in agreement and deny further questions or concerns at this time. Anticipate .
[2019-05-19 16:37] LABS: BASOPHILS % (AUTO) 0.3 %; EOSINOPHILS % (AUTO) 0.3 %; LYMPHOCYTES # (AUTO) 1.7 10^3/uL (1.5-3.5); LYMPHOCYTES % (AUTO) 14.4 %; MEAN CORPUSCULAR HGB CONC 33.4 g/dL (32.0-36.0); MEAN CORPUSCULAR VOLUME 95.7 fL (81.0-99.0); MEAN PLATELET VOLUME 12.1 fL (7.9-10.8); MONOCYTES # (AUTO) 0.7 10^3/uL (0.0-1.0); NEUTROPHILS # (AUTO) 9.2 10^3/uL (1.5-6.6); NEUTROPHILS % (AUTO) 78.2 %; PLT - PLATELET COUNT 160 10^3/uL (130-450); RED BLOOD COUNT 3.75 10^6/uL (4.20-5.40); RED CELL DISTRIBUTION WIDTH 13.2 % (12.0-15.0); WHITE BLOOD COUNT 11.8 x10^3/uL (4.8-10.8)
[2019-05-19] MEDS ORDERED: SODIUM CHLORIDE FLUSH 0.9% 10 ML SYRINGE IVP SCH (17:00)
[2019-05-19] MEDS ORDERED: fentaNYL 100 MCG/2 ML VIAL IVP PRN (18:20)
[2019-05-19] MEDS: LACTATED RINGERS 1,000 ML IV SCH ×2 (18:29→22:23)
[2019-05-19] MEDS ORDERED: ROPIVACAINE 0.2% 200 MG/100 ML BAG EP ONE (18:47)
[2019-05-19] MEDS ORDERED: ROPIVACAINE 0.2% PF 20ML VIAL ONE (18:48)
[2019-05-19] MEDS ORDERED: ePHEDrine 50 MG/ML VIAL IVP PRN (19:27)
[2019-05-19] MEDS ORDERED: LACTATED RINGERS 500 ML IV ONE (19:27)
[2019-05-19] MEDS ORDERED: NALBUPHINE 10 MG/ML AMP IVP PRN (19:27)
[2019-05-19] MEDS ORDERED: ROPIVACAINE 0.2% 200 MG/100 ML BAG EP PRN (19:27)
[2019-05-19] MEDS ORDERED: METOCLOPRAMIDE 10 MG/2 ML VIAL IVP PRN (19:27)
[2019-05-19] MEDS ORDERED: diphenhydrAMINE INJ 50 MG/ML VIAL IVP PRN (19:27)
[2019-05-19] MEDS ORDERED: NALOXONE 0.4 MG/ML VIAL IVP PRN (19:27)
--- NOTE | 2019-05-19 19:33 | ANESTHESIA ---
Pre-Anesthesia VS, & Labs - Diagnosis IUP term labor - Procedure Labor epidural Vital Signs: Temp Pulse Resp BP Pulse Ox 37.0 C 91 20 132/86 H 100 05/19/19 14:18 05/19/19 14:18 05/19/19 14:18 05/19/19 14:18 05/19/19 14:18 Height 5 ft 7.5 in Weight (kg) 89.448 kg Body Mass Index 22.8 - NPO >8 hours Last Food Intake: "no food since breakfast" - Is Patient ?: Yes - Lab Results Current Lab Results: Laboratory Tests 05/19/19 16:22: WBC 11.8 H, RBC 3.75 L, Hgb 12.0, Hct 35.9 L, MCV 95.7, MCH 32.0 H, MCHC 33.4, RDW 13.2, Plt Count 160, MPV 12.1 H, Neut # (Auto) 9.2 H, Lymph # (Auto) 1.7, [place] # (Auto) 0.7, Eos # (Auto) 0.0, Baso # (Auto) 0.0, Absolute Nucleated RBC 0.00, Nucleated RBC % 0.0 Lab results reviewed: Yes Fish Bones: 05/19/19 16:22 Home Medications and Allergies Active Medications Diphenhydramine HCl (Benadryl Inj) 12.5 - 25 mg IVP Q6HR PRN PRN Reason: ITCHING Ephedrine Sulfate () 5 mg IVP Q5M PRN PRN Reason: For SBP<100;give until SBP>100 Fentanyl (Fentanyl) 50 mcg IVP Q2HR PRN PRN Reason: PAIN Lactated Ringer's (Lr) 1,000 mls @ 150 mls/hr IV .Q6H40M JAYESH Last Admin: 05/19/19 18:29 Dose: 150 mls/hr Lactated Ringer's (Lr) 500 mls @ 999 mls/hr IV ONCE ONE Stop: 05/19/19 19:57 Ropivacaine (Naropin 0.2%) 200 mg in 100 mls @ 0 mls/hr EP PRN PRN; Protocol PRN Reason: PAIN Metoclopramide HCl (Reglan Inj) 10 mg IVP Q6HR PRN PRN Reason: Nausea / Vomiting Nalbuphine HCl (Nubain) 2.5 - 5 mg IVP Q4H PRN PRN Reason: ITCHING Naloxone HCl (Narcan) 0.1 mg IVP Q2M PRN PRN Reason: RR<8 Ondansetron HCl (Zofran Inj) 4 mg IVP Q6HR PRN PRN Reason: Nausea / Vomiting Ondansetron HCl (Zofran Inj) 4 mg IVP Q6HR PRN PRN Reason: Nausea / Vomiting Sodium Chloride (Normal Saline Flush 0.9%) 10 ml IVP PRN PRN PRN Reason: NEEDED PER PROVIDER ORDERS Sodium Chloride (Normal Saline Flush 0.9%) 10 ml IVP 0100,0900,1700 JAYESH Allergies/Adverse Reactions: Allergies Allergy/AdvReac Type Severity Reaction Status Date / Time No Known Drug Allergies Allergy Verified 06/19/16 04:19 Anes History & Medical History - Anesthetic History Anesthesia Complications: reports: No previous complications Family history of Anesthesia Complications: Denies Family history of Malignant Hyperthermia: Denies - Medical History Cardiovascular: reports: Other Pulmonary: reports: None Smoking Status: Former smoker - Obstetrical History : 1 Parity: 0 Events: positive: None Complications: positive: None Exam General: Alert, Oriented x3, Cooperative Dental: WNL Mouth Openin Fingerbreadth Neck Mobility: Normal Mallampati classification: II Thyromental Distance: greater than 6 cm Respiratory: No respiratory distress Cardiovascular: Regular rate Neurological: Normal speech Mental/Cognitive Status: Alert/Oriented X3 Cognitive Status: Within normal limits Plan Anesthesia Type: Epidural Consent for Procedure(s) Verified and Reviewed: Yes Code Status: Attempt Resuscitation ASA classification: 2-Mild systemic disease Is this case an emergency?: No
--- NOTE | 2019-05-19 21:31 | PROVIDER PROGRESS NOTE ---
Labor Progress Note - Uterine Monitoring Contraction Frequency (min/apart): 4-7 Contraction Intensity: positive: Moderate Uterine Resting Tone: positive: Soft - Monitoring Monitor Mode: positive: External ultrasound Heart Rate Baseline: 145 Heart Rate Variability: positive: Moderate (6-25 bmp) Accelerations: positive: Present, 15x15 Decelerations: positive: None Strip Review: positive: Category I - Vaginal Exam Dilation (in cm): 2 Effacement (%): 75 Station: 1 Cervical Position: Posterior - Labor Progress Note Labor Progress Note/Additional Text: S: Laying bed and is comfortable with epidural in place. Her mother and sister are supportive at the bedside. Father of the baby missed his shuttle from the airport and will likely be here around 2300. She is feeling much more comfortable and is anxious to have a baby. She desires to initiate labor augmentation. O: Contractions palpate moderate every 4-7 minutes with soft resting tone. FHR baseline 145, moderate variability, + accels, no decels SVE 2/75/+1, posterior, vertex with intact membranes A: 29yo @ 39.5wks gestation GBS neg Early labor P: Initiate pitocin with titration per protocol for labor augmentation Continuous monitoring Encouraged position changes in bed and rotation on peanut ball. Repeat SVE in 4 hours or sooner PRN. Anticipate . Reviewed plan of care with pt, family at the bedside, and labor RN who are all in agreement with above plan and deny further questions or concerns at this time.
[2019-05-19] MEDS ORDERED: OXYTOCIN/DEXTROSE 5 % 30 UNIT/500 ML BAG IV SCH (22:00)
[2019-05-19] MEDS: CALCIUM CARBONATE CHEW 500 MG TABLET PO SCH (22:19)
[2019-05-19] MEDS ORDERED: FAMOTIDINE 20 MG TABLET PO SCH (23:00)
--- NOTE | 2019-05-19 23:13 | CONSULTATION NOTE ---
Consultation Report: Call to OB for movement of epidural catheter increased discomfort. Sensory level T12. Cath disconnected as a result of pulling when turning to the right. Both ends secured with cap, tegaderm. Cath and port swabbed with chlorhexadine and allowed to dry. Tubing intact without damage. Reconnected without difficulty. Secure. Negative aspiration. Bolus 5cc 0.2% Ropi. Sensory level T8. VSS.
[2019-05-20] MEDS ORDERED: ROPIVACAINE 0.2% PF 20ML VIAL ONE (00:04)
[2019-05-20] MEDS ORDERED: fentaNYL 100 MCG/2 ML VIAL ONE (00:04)
--- NOTE | 2019-05-20 00:20 | CONSULTATION NOTE ---
Consultation Report: Call to OB for increased discomfort with contractions, midline and moving inferior. Sensory at T12@R, L3@L. Catheter intact and no evidence of migration. Pt repositioned to Left tilt and epidural dosed with 0.2% Ropivicaine 8cc and Fentanyl 100mcg in 2 divided 5cc doses. Pt states full relief of contraction pain after 6 minutes. VSS t/o.
[2019-05-20] MEDS ORDERED: miSOPROStoL 200 MCG TABLET ONE (02:36)
[2019-05-20] MEDS ORDERED: HYDROCORTISONE 1% CREAM 28 GM TUBE PR PRN (04:38)
[2019-05-20] MEDS ORDERED: WITCH HAZEL/GLYCERIN 1 PAD TOP PRN (04:38)
[2019-05-20] MEDS ORDERED: OXYTOCIN/DEXTROSE 5 % 30 UNIT/500 ML BAG IV PRN (04:40)
--- NOTE | 2019-05-20 04:51 | DELIVERY NOTE ---
Delivery Note - Labor Labor: positive: Spontaneous, Augmented by oxytocin - Delivery Method Delivery Method: positive: Spontaneous vaginal delivery - Presentation Presentation: positive: Vertex, DIAMOND - left occiput anterior - Nuchal Cord Nuchal Cord: positive: None - Amniotic Fluid Description Amniotic Fluid Description: positive: Clear - Episiotomy Type Episiotomy Type: positive: None - Laceration Laceration: positive: 1st degree, 2nd degree, Labial, Vaginal - Suture Suture Type: positive: Vicryl Suture Size: positive: 2-0, 4-0 - Delivery Outcome Delivery Outcome: positive: Livebirth - : positive: Placed in direct skin contact with mother, Bulb syringe, Stimulated, Warmed, [place] used [place] sex: positive: Male - Cord Cord: positive: 3 vessels - Placenta Placenta: positive: Intact, Spontaneous - Estimated Blood Loss Estimated Blood Loss (in cc): 250 - Post Delivery Events Post Delivery Events: positive: No post delivery events - Delivery Comments (Free Text/Narrative) Delivery Comments (Free Text/Narrative): Labor: This 29yo @ 40.0wks gestation presented on 05/19/2019 @ approximately 1400 with c/o painful contractions. Cervix was 2/75/+1, posterior, vertex with intact membranes. She was placed in observation status and her contractions continued to increase in frequency and intensity. An epidural was placed per maternal request and pt admitted to [facility] at 1900 on 05/19/2019. FHR pattern demonstrated a Category I pattern throughout labor. She was augmented with pitocin for a max infusion rate of 4mU/mL. SROM occurred at 0202 on 05/20/2019 and was noted to be a moderate amount of clear fluid. Pt progressed to c/c/+2 at 0329. : Normal of viable male infant on 05/20/2019 at 0359. No nuchal cord. The was stimulated, dried, and placed skin to skin. 's 9/9 at 1 and 5 min respectively. The umbilical cord was allowed to stop pulsating at which time it was doubly clamped by CNM and cut by FOB. Pitocin administered via IV for hemostasis. Cord blood was obtained. 3VC. EBL 250mL. Fourth stage: Uterine fundus firm and there is no excessive bleeding. The perineum, vagina, and cervix were inspected and found to have a 2nd degree vaginal laceration which was repaired using a 2-[address]-1 needle in standard fashion under sterile conditions. In addition there was noted to be a 1st degree right labial laceration which was repaired used a 4-0 vicryl on an SH needle in standard fashion under sterile conditions. Vaginal examination following repair was completed. Tissues well approximated. initiated. Family bonding well. Both mother and baby were left in stable condition.
[2019-05-20] MEDS: ACETAMINOPHEN 500 MG TABLET PO SCH ×3 (06:04→21:56)
[2019-05-20] MEDS: IBUPROFEN 800 MG TABLET PO SCH ×3 (06:04→18:49)
[2019-05-20] MEDS: CALCIUM CARBONATE CHEW 500 MG TABLET PO SCH (11:40)
[2019-05-20] MEDS ORDERED: RHO(D) IMMUNE GLOBULIN 300 MCG SYRINGE IM ONE (16:18)
[2019-05-21] MEDS: IBUPROFEN 800 MG TABLET PO SCH ×3 (01:14→14:02)
[2019-05-21] MEDS: ACETAMINOPHEN 500 MG TABLET PO SCH ×2 (05:49→14:01)
--- NOTE | 2019-05-21 07:29 | Discharge Plan ---
Discharge Plan Problem Reviewed?: Yes Disposition: Home, Self Care Condition: Good Diet: Regular Activity Restrictions: No Restrictions Shower Restrictions: No Driving Restrictions: No Weight Bearing: Full Weight No Smoking: If you smoke, Please STOP! Call for help. Follow-up with: Maria Antonia Bo CNM, ARNP [Provider Admit Priv/Credential] -
--- NOTE | 2019-05-21 07:32 | PROVIDER PROGRESS NOTE ---
Subjective - Subjective Subjective: FINAL PROGRESS NOTE: S: Bonding well with baby. without difficulty. States she is feeling very tired because baby wanted to breastfeed every 20 minutes throughout the night. Bleeding decreased and is light. Pain well controlled with oral medications and she states her perineal discomfort is improving. O: BP 114/67, T 36.6, RR 17, HR 88 A: 29yo -->P1 PPD#1 s/p TSVD of viable male 2nd degree vaginal laceration - intact P: Reviewed pp self care and warning s/sx. Advised continuation of PNV while . Advised continuation of ibuprofen and tylenol as needed for pain management. F/u in 1 week for support visit and in 3 weeks for routine pp visit or sooner PRN. Pt verbalized understanding and agrees to above plan. She denies further questions or concerns at this time. Objective - Vital Signs/Intake & Output Vital Signs: Vital Signs x48h Temp Pulse Resp BP Pulse Ox 05/21/19 04:00 36.6 C 88 17 114/67 97 Intake & Output: Intake & Output 05/18/19 05/19/19 05/20/19 05/21/19 23:59 23:59 23:59 23:59 Intake Total 585 1000 Output Total 1700 Balance 585 -700 - Lab Results Fish Bones: 05/19/19 16:22 Other Labs: Lab Results x24hrs 05/20/19 Range/Units 08:36 Blood Type A NEGATIVE Weak D (Du) WEAK-D NEGATIVE Maternal Bleed NEGATIVE (NEGATIVE)
[2019-05-21] MEDS: CALCIUM CARBONATE CHEW 500 MG TABLET PO SCH (07:56)
--- NOTE | 2019-05-21 08:05 | DISCHARGE SUMMARY ---
Physician: AFRICA Reynolds DATE OF ADMISSION: 05/19/2019 DATE OF DISCHARGE: 05/21/2019 DIAGNOSES ON ADMISSION 1. A 29-year-old, G1, P0 at 39.5 weeks gestation. 2. Early labor. 3. Group B Streptococcus negative. DIAGNOSES ON DISCHARGE 1. A 29-year-old, G1, P1-0-0-1, status post spontaneous vaginal delivery on 05/20/2019. 2. . 3. Normal recovery. HISTORY OF PRESENT ILLNESS: She is a patient of [facility] who presented on 020 with complaints of painful contractions. Cervix was 2 cm dilated, 75% effaced, +1 station, verte x position with intact membranes. Her contractions continued to increase in frequency and intensity and an epidural was placed per maternal request. She was augmented with Pitocin for a max infusion r ate of 4 milliunits per mL. She progressed to spontaneously deliver a viable male infant on 05/20/19 20 at 0359. Apgars were 9 and 9 at 1 and 5 minutes, respectively. EBL 250 mL. The perineum, vagina and cervix were inspected and noted to have a second-degree vaginal laceration, which was repaired u sing a 2-0 Vicryl on a CT1 needle in standard fashion under sterile conditions. In addition, there w as noted to be a first-degree right labial laceration, which was repaired using a 4-0 Vicryl on an SH needle in standard fashion under sterile conditions. She has been doing well in her course. She is ambulating and tolerating a regular diet. She is urinating without difficulty and her lochia is normal. Her pain is well controlled with oral medications. She will be discharged home today on day #1 with instructions to continue he r vitamin while , and to continue taking ibuprofen and Tylenol [id number] as needed for pain management. She intends to followup with myself at [facility] i n 1 week for support visit and in 3 weeks for routine visit or sooner if needed. She has been given precautions to call if she has any worsening fevers, chills, abdominal pain, inc reased bleeding or foul-smelling vaginal lochia. TD: 05/21/2019 07:39
[2019-05-21 11:49] VITALS: BP 120/71
--- NOTE | 2019-05-21 16:02 | Labor Flowsheet ---
Labor Flowsheet Datetime Report Generated by CPN: 05/21/2019 16:02 Datetime: 05/21/2019 11:47 VITAL SIGNS NBP Sys/Karen/Mean (mmHg): 120 : 71 : 83 Pulse: 86 LaborFlag: Labor Datetime: 05/20/2019 11:54 SpO2 (%): 99 Datetime: 05/20/2019 05:29 Respirations: 16 Temperature (C): 36.4 Datetime: 05/20/2019 03:45 UTERINE ACTIVITY Monitor Mode: Internal Frequency (min): 2-3.5 Quality: Strong Duration (sec): 60-80 Pattern: Normal: <= 5 Contractions in 10 Minutes Resting Tone (Palpate): Relaxed Monitor Interventions for FHR: Ultrasound Adjusted FHR Baseline Rate : 145 FHR Baseline Changes: No Baseline Change Variability: Minimal - Undetectable to <=5 bpm Decelerations: Early; Variable Datetime: 05/20/2019 03:27 Provider Notified (Name): A. Anupam, CNM Communication Comments: attend delivery Datetime: 05/20/2019 03:25 STAGE 2 Pushing Position: Pushing with Contractions Pushing Progress: Descent with Pushing Datetime: 05/20/2019 03:24 VAGINAL EXAM Dilatation (cm): 10.0 Exam by: Hmahala Datetime: 05/20/2019 03:08 PAIN Pain Scale: 0 Datetime: 05/20/2019 03:02 PATIENT CARE Patient Position/Activity: Left Lateral Datetime: 05/20/2019 02:02 Category: Category I Pain Presence: None/Denies Effacement (%): 100 Station: 1 Membrane Status: Ruptured Membranes Rupture Method: Spontaneous Amniotic Fluid Color: Bloody Amniotic Fluid Amount: Moderate Amniotic Fluid Odor: Normal Datetime: 05/20/2019 01:52 ASSESSMENT A Monitor Mode: External US Datetime: 05/20/2019 01:45 TEACHING Instructional Method: Verbal Plan of Care: Plan of Care Discussed; Induction Labor/Induction: Augmentation Datetime: 05/20/2019 01:39 Monitor Interventions for UA: [place] Adjusted Datetime: 05/20/2019 01:30 MEDICATIONS Pitocin (milliunits): Decreased to @ (Annotations: 2mu) Datetime: 05/20/2019 00:46 Pitocin Checklist: At Least 1 Acceleration of 15 bpm x 15 Seconds in 30 Minutes or Adequate Variabi lity; No More than 2 Variable Decelerations > 60 Seconds in Duration and decreasing >60 bpm in 30 min utes Accelerations: 15X15 Datetime: 05/20/2019 00:11 Anesthesia Level Check: T10- Umbilicus Datetime: 05/20/2019 00:03 Anesthesia Comments: ANESTHESIA HERE BOLUS EPIDURAL Datetime: 05/19/2019 23:52 Pain Type: Cramping Pain Location: Abdomen; Back Pain Coping: Breathing Through Contractions Pain Assessment Comments: Nitrious give to pt Datetime: 05/19/2019 23:40 ANESTHESIA Anesthesia Plans: Epidural Datetime: 05/19/2019 20:16 Vaginal Bleeding: None Cervix, Consistency: Soft Cervix, Position: Posterior I/O Interventions: Wheeler Cath Inserted Datetime: 05/19/2019 20:01 Temperature Route: Oral Datetime: 05/19/2019 19:47 Patient Care Comments: position from R-side to L-side Datetime: 05/19/2019 19:15 Epidural Procedure Other: Pump Started Datetime: 05/19/2019 19:10 Epidural Procedure: Loading Dose Datetime: 05/19/2019 19:05 Stage of : Labor Anesthesia Interview: E Datetime: 05/19/2019 19:00 Actions for Decelerations: IV Bolus MATERNAL ASSESSMENT Level of Consciousness: Fully Conscious Headache: Denies Breath Sounds, Left: Clear and Equal Breath Sounds, Right: Clear and Equal Nausea/Vomiting: Denies RUQ Epigastric Pain: Denies PROCEDURE TIME OUT Procedure Type: epidural Procedure Verify: Correct Patient Identity; Correct Side and Site are Marked; Accurate Procedure Co nsent Form; Correct Patient Position; Safety Precautions Based on Patient History or Medication Use COMMUNICATION Communication: Call/Page Placed to Provider Notification Reason: Status Update; Pain Datetime: 05/19/2019 18:58 Pain Goal: 0 Datetime: 05/19/2019 18:57 Epidural Positioning: Sitting Datetime: 05/19/2019 17:51 Pain Relief Measures: Comfort Measures Pain Management: IV Narcotics; Comfort Measures PTL/PROM: Expected Outcomes
== END 2019-05-21 13:45 | disposition home or self-care (01) | DRG 807 ==
LOC: WFO 13:54 → FBP 13:58 → WFO 16:13 → FBP 16:14 → UNDOADMOB 16:14 → FBP 16:45 → INTOOBSV 19:00 → OBSVTOIN 19:00 → FBP 21:33 → UNDODISIN 05-21 13:45
PROVIDERS: ADMIT Nurse Practitioner Obstetrics & Gynecology; ATTEND Nurse Practitioner Obstetrics & Gynecology
PROC: 10E0XZZ Delivery of Products of Conception, External Approach (ICD-10-PCS; principal; 2019-05-20)
PROC: 0KQM0ZZ Repair Perineum Muscle, Open Approach (ICD-10-PCS; 2019-05-20)
DX: O70.1 Second degree perineal laceration during delivery (principal); Z37.0 Single live birth; O70.0 First degree perineal laceration during delivery; O26.893 Other specified pregnancy related conditions, third trimester; Z67.11 Type A blood, Rh negative; Z3A.39 39 weeks gestation of pregnancy; Z87.891 Personal history of nicotine dependence
CPT/HCPCS: 36415; 83033; 85025; 86900; 86901; 99213; A9270; G0378; J2795; J7120

== ENCOUNTER 2021-04-28 14:11 | Outpatient (CLI) | payer SELFPAY | END 2021-04-28 14:12 | disposition critical access hospital (66) | LOC: EMS 14:11 | DX: R45.851 Suicidal ideations (principal); F32.A Depression, unspecified | CPT/HCPCS: A0425; A0429 ==

== ENCOUNTER 2021-04-28 14:28 | Emergency (ER) | payer SELFPAY ==
[2021-04-28 14:42] VITALS: BP 122/89
[2021-04-28 15:13] LABS: BASOPHILS # (AUTO) 0.1 10^3/uL (0.0-0.1); BASOPHILS % (AUTO) 0.6 %; EOSINOPHILS % (AUTO) 0.1 %; HCT - HEMATOCRIT 42.6 % (37.0-47.0); HGB - HEMOGLOBIN 14.9 g/dL (12.0-16.0); LYMPHOCYTES # (AUTO) 2.2 10^3/uL (1.5-3.5); LYMPHOCYTES % (AUTO) 24.5 %; MEAN CORPUSCULAR HEMOGLOBIN 33.3 pg (27.0-31.0); MEAN CORPUSCULAR VOLUME 95.3 fL (81.0-99.0); MEAN PLATELET VOLUME 10.7 fL (7.9-10.8); MONOCYTES # (AUTO) 0.3 10^3/uL (0.0-1.0); MONOCYTES % (AUTO) 3.4 %; NEUTROPHILS # (AUTO) 6.4 10^3/uL (1.5-6.6); PLT - PLATELET COUNT 278 10^3/uL (130-450); RED BLOOD COUNT 4.47 10^6/uL (4.20-5.40); RED CELL DISTRIBUTION WIDTH 12.3 % (12.0-15.0); WHITE BLOOD COUNT 9.1 x10^3/uL (4.8-10.8)
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
[2021-04-28 15:26] LABS: ALBUMIN 4.6 g/dL (3.2-5.5); ALBUMIN/GLOBULIN RATIO 1.5 (1.0-2.2); BILIRUBIN,TOTAL 0.7 mg/dL (0.2-1.0); CREATININE 0.6 mg/dL (0.4-1.0); ETOH - ETHANOL 232.1 mg/dL; POTASSIUM 3.6 mmol/L (3.5-5.0); TOTAL PROTEIN 7.7 g/dL (6.7-8.2)
[2021-04-28 15:53] LABS: MUDS CUTOFF CONCENTRATIONS CUTOFF CONC BELOW:
[2021-04-28 16:03] LABS: BILIRUBIN,URINE NEGATIVE (NEGATIVE); GLUCOSE, URINE (UA) NEGATIVE (NEGATIVE); KETONES,URINE (UA) NEGATIVE (NEGATIVE); LEUKOCYTE ESTERASE, URINE NEGATIVE (NEGATIVE); NITRITE,URINE NEGATIVE (NEGATIVE); OCCULT BLOOD,URINE NEGATIVE (NEGATIVE); PROTEIN,URINE NEGATIVE (NEGATIVE); UROBILINOGEN,URINE 0.2 (NORMAL) E.U./dL (NORMAL)
[2021-04-28 16:04] LABS: CLARITY,URINE CLEAR (CLEAR); HCG UR QUAL NEGATIVE
[2021-04-28 16:11] LABS: AMPHETAMINE SCREEN,URINE NEGATIVE (NEGATIVE); BARBITURATE SCREEN,UR NEGATIVE (NEGATIVE); BENZODIAZEPINES SCREEN, URINE NEGATIVE (NEGATIVE); COCAINE SCREEN URINE NEGATIVE (NEGATIVE); METHADONE SCREEN, URINE NEGATIVE (NEGATIVE); METHAMPHETAMINES SCREEN, URINE NEGATIVE (NEGATIVE); OPIATE SCREEN, URINE NEGATIVE (NEGATIVE); OXYCODONE SCREEN, URINE NEGATIVE (NEGATIVE); PROPOXYPHENE SCREEN, URINE NEGATIVE (NEGATIVE); THC CANNABINOID SCREEN, URINE NEGATIVE (NEGATIVE); TRICYCLIC ANTIDEPRESSANT,URINE NEGATIVE (NEGATIVE)
== END 2021-04-28 17:18 | disposition home or self-care (01) ==
LOC: EDUNIT# → ED 14:28
DX: F10.920 Alcohol use, unspecified with intoxication, uncomplicated (principal); R45.851 Suicidal ideations; Z87.891 Personal history of nicotine dependence
CPT/HCPCS: 36415; 80053; 80306; 80320; 81001; 81003; 81025; 83690; 85025; 87086; 99282; 99283